=== PATIENT | female | born 1955 ===

== ENCOUNTER 2021-08-13 12:55 | Emergency (ER) | payer SELFPAY ==
--- NOTE | 2021-08-13 13:41 | EDM.PDOC ---
ED HPI GENERAL MEDICAL PROBLEM - General Chief Complaint: Respiratory Problem Stated Complaint: AMBULANCE Time Seen by Provider: 08/13/21 13:36 Source of Information: Reports: Patient History Limitations: Reports: Other (pt has a trac airwya and cannot speak effectively) - History of Present Illness INITIAL COMMENTS - FREE TEXT/NARRATIVE: 66 y/o F c/o R sided cp 4/10 , R lowed back pn and R shoulder pain all 4/10 for 1 week as well a cough with yellow sputum and tracheal congestion. Pt has a trach airway and conversing is difficult. She reports the cp is sharp painful to palpation, constant as is the shoulder and back pn. Hx of throat cancer 2 years ago which left her with the trach. SHe states the pain feels like the pain she had when she was diagnosed with cancer. She denies fever, chills, drugs, etoh, db, abd pn, pelvic pn, trauma, lower extremity pn, constipation, diff voiding. Lower Back Pain Score (Numeric/FACES): 6 ED ROS GENERAL - Review of Systems Review Of Systems: Comprehensive ROS is negative, except as noted in HPI. ED EXAM, GENERAL - Physical Exam Exam: See Below Exam Limited By: No Limitations General Appearance: Alert, No Apparent Distress Eye Exam: Bilateral Eye: PERRL Nose: Normal Inspection, Normal Mucosa, No Blood Throat/Mouth: Normal Inspection, Normal Lips, Normal Teeth, Normal Gums, Normal Oropharynx, Normal Voice, No Airway Compromise Head: Atraumatic, Normocephalic Neck: Supple, Non-Tender, Other (trach airway present and is producing extra secretions) Respiratory/Chest: No Respiratory Distress, Lungs Clear, Normal Breath Sounds, Other (chest tender to palaption R upper cehst R anteriro shoulder. ) Cardiovascular: Normal Peripheral Pulses, Regular Rate, Rhythm GI/Abdominal: Soft, Non-Tender (Female) Exam: Deferred Rectal (Female) Exam: Deferred Back Exam: Normal Inspection, Full Range of Motion, Other (tender to palpation R upper back) Extremities: Normal Inspection, Normal Range of Motion, Non-Tender, Normal Capillary Refill, No Pedal Edema Neurological: Alert, Oriented, CN II-XII Intact, Normal Cognition, Normal Gait, Normal Reflexes, No Motor/Sensory Deficits Skin Exam: Warm, Dry, Intact #1 Interpretation EKG Date: 08/13/21 Time: 13:41 Rhythm: Other (sinus tach) [place]: Normal P-Wave: Present QRS: Normal ST-T: Normal QT: Normal Course - Vital Signs Last Recorded V/S: Last Vital Signs Temp 97.8 F 08/13/21 13:09 Pulse 107 H 08/13/21 13:09 Resp 20 08/13/21 13:09 BP 153/98 H 08/13/21 13:09 Pulse Ox 97 08/13/21 13:09 - Orders/Labs/Meds Labs: Laboratory Tests 08/13/21 08/13/21 08/13/21 Range/Units 13:06 13:16 13:16 WBC 6.6 (5.0-10.0) 10^3/uL RBC 4.71 (4.2-5.4) 10^6/uL Hgb 13.5 (12.0-16.0) g/dL Hct 42.1 (37.0-47.0) % MCV 89.4 (80-100) fL MCH 28.7 (27.0-34.0) pg MCHC 32.1 L (33.0-35.0) g/dL Plt Count 194 (150-450) 10^3/uL Neut % (Auto) 72.4 (42.2-75.2) % Lymph % (Auto) 17.4 L (20.5-50.1) % [place] % (Auto) 7.3 (2-8) % Eos % (Auto) 2.6 (1.0-3.0) % Baso % (Auto) 0.3 (0.0-1.0) % D-Dimer, Quantitative (0-400) ng/mL Sodium 142 (136-145) mmol/L Potassium 3.8 (3.5-5.1) mmol/L Chloride 105 (98-107) mmol/L Carbon Dioxide 28 (21-32) mmol/L Anion Gap 12.8 (7-13) mEq/L BUN 16 (7-18) mg/dL Creatinine 0.88 (0.55-1.02) mg/dL Est Cr Clr Drug Dosing TNP Estimated GFR (MDRD) > 60 BUN/Creatinine Ratio 18.2 (No establ ref range) Glucose 90 (70-99) mg/dL Lactic Acid (0.4-2.0) mmol/L Calcium 8.9 (8.5-10.1) mg/dL Magnesium 1.8 (1.8-2.4) mg/dL Total Bilirubin 0.4 (0.2-1.0) mg/dL AST 22 (15-37) U/L ALT 16 (14-59) U/L Alkaline Phosphatase 90 (46-116) U/L Lactate Dehydrogenase (81-234) U/L Troponin I High Sens 13 (<=51) pg/mL C-Reactive Protein < 0.2 (0.0-0.9) mg/dL B-Natriuretic Peptide 20 (0-100) pg/ml Total Protein 7.3 (6.4-8.2) g/dL Albumin 3.4 (3.4-5.0) g/dL Globulin 3.9 Albumin/Globulin Ratio 0.9 Amylase 33 (25-115) U/L Lipase 92 (73-393) U/L Free T4 (0.76-1.46) ng/dL TSH, Ultra Sensitive (0.36-3.74) uIU/mL SARS-CoV-2 RNA (DEBBI) Negative (NEGATIVE) 08/13/21 08/13/21 08/13/21 Range/Units 13:16 13:16 13:16 WBC (5.0-10.0) 10^3/uL RBC (4.2-5.4) 10^6/uL Hgb (12.0-16.0) g/dL Hct (37.0-47.0) % MCV (80-100) fL MCH (27.0-34.0) pg MCHC (33.0-35.0) g/dL Plt Count (150-450) 10^3/uL Neut % (Auto) (42.2-75.2) % Lymph % (Auto) (20.5-50.1) % [place] % (Auto) (2-8) % Eos % (Auto) (1.0-3.0) % Baso % (Auto) (0.0-1.0) % D-Dimer, Quantitative 253 (0-400) ng/mL Sodium (136-145) mmol/L Potassium (3.5-5.1) mmol/L Chloride (98-107) mmol/L Carbon Dioxide (21-32) mmol/L Anion Gap (7-13) mEq/L BUN (7-18) mg/dL Creatinine (0.55-1.02) mg/dL Est Cr Clr Drug Dosing Estimated GFR (MDRD) BUN/Creatinine Ratio (No establ ref range) Glucose (70-99) mg/dL Lactic Acid 0.8 (0.4-2.0) mmol/L Calcium (8.5-10.1) mg/dL Magnesium (1.8-2.4) mg/dL Total Bilirubin (0.2-1.0) mg/dL AST (15-37) U/L ALT (14-59) U/L Alkaline Phosphatase (46-116) U/L Lactate Dehydrogenase 156 (81-234) U/L Troponin I High Sens (<=51) pg/mL C-Reactive Protein (0.0-0.9) mg/dL B-Natriuretic Peptide (0-100) pg/ml Total Protein (6.4-8.2) g/dL Albumin (3.4-5.0) g/dL Globulin Albumin/Globulin Ratio Amylase (25-115) U/L Lipase (73-393) U/L Free T4 (0.76-1.46) ng/dL TSH, Ultra Sensitive (0.36-3.74) uIU/mL SARS-CoV-2 RNA (DEBBI) (NEGATIVE) 08/13/21 08/13/21 Range/Units 13:16 13:16 WBC (5.0-10.0) 10^3/uL RBC (4.2-5.4) 10^6/uL Hgb (12.0-16.0) g/dL Hct (37.0-47.0) % MCV (80-100) fL MCH (27.0-34.0) pg MCHC (33.0-35.0) g/dL Plt Count (150-450) 10^3/uL Neut % (Auto) (42.2-75.2) % Lymph % (Auto) (20.5-50.1) % [place] % (Auto) (2-8) % Eos % (Auto) (1.0-3.0) % Baso % (Auto) (0.0-1.0) % D-Dimer, Quantitative (0-400) ng/mL Sodium (136-145) mmol/L Potassium (3.5-5.1) mmol/L Chloride (98-107) mmol/L Carbon Dioxide (21-32) mmol/L Anion Gap (7-13) mEq/L BUN (7-18) mg/dL Creatinine (0.55-1.02) mg/dL Est Cr Clr Drug Dosing Estimated GFR (MDRD) BUN/Creatinine Ratio (No establ ref range) Glucose (70-99) mg/dL Lactic Acid (0.4-2.0) mmol/L Calcium (8.5-10.1) mg/dL Magnesium (1.8-2.4) mg/dL Total Bilirubin (0.2-1.0) mg/dL AST (15-37) U/L ALT (14-59) U/L Alkaline Phosphatase (46-116) U/L Lactate Dehydrogenase (81-234) U/L Troponin I High Sens (<=51) pg/mL C-Reactive Protein (0.0-0.9) mg/dL B-Natriuretic Peptide (0-100) pg/ml Total Protein (6.4-8.2) g/dL Albumin (3.4-5.0) g/dL Globulin Albumin/Globulin Ratio Amylase (25-115) U/L Lipase (73-393) U/L Free T4 1.01 (0.76-1.46) ng/dL TSH, Ultra Sensitive 10.69 H (0.36-3.74) uIU/mL SARS-CoV-2 RNA (DEBBI) (NEGATIVE) - Re-Assessments/Exams Free Text/Narrative Re-Assessment/Exam: 08/13/21 14:58 I discussed the pts labs, exam, xray and ekg findings with her and explained that she likely has a respiratory infection which is why she is producing more mucus and sputum. The pt has been suctioned multiple times in the Er by RT and expresses some relief in her tracheal congestion. She is adamant about going home and states she has oxygen with humidification and suction at home to manage her extra secretions. 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 She will see her cancer doctor on and go over her results today. Departure - Departure Time of Disposition: 15:03 Disposition: Home, Self-Care 01 Condition: Good Clinical Impression: Viral respiratory illness - Discharge Information *PRESCRIPTION DRUG MONITORING PROGRAM REVIEWED*: Not Applicable *COPY OF PRESCRIPTION DRUG MONITORING REPORT IN PATIENT SATHISH: Not Applicable Instructions: Nonspecific Chest Pain, Adult, [id number] Forms: ED Department Discharge Additional Instructions: Continue suctioning your trach and use humidified oxygen to help keep your secretions from clogging up your trach. Follow up with your cancer doctor on and discuss your ER visit today. If any new symptoms or concerns develop contact your primary care facility or return to the ER. Sepsis Event Note (ED) - Evaluation Sepsis Screening Result: No Definite Risk - Focused Exam Vital Signs: Vital Signs Temp Pulse Resp BP Pulse Ox 08/13/21 13:09 97.8 F 107 H 20 153/98 H 97
[2021-08-13 13:50] LABS: ANION GAP 12.8 mEq/L (7-13); CHLORIDE,CL 105 mmol/L (98-107); SODIUM,NA 142 mmol/L (136-145)
--- NOTE | 2021-08-13 15:07 | CR ---
EXAMINATION: Chest 1V Frontal, rotated SEX: Female AGE: 66 years CLINICAL HISTORY: 66-year-old female with cough (right upper chest pain). No comparison films immediately available. Interpretation: 1. Ringlike Tracheostomy apparatus, left of midline. Gown snap. Brassiere clips over right shoulder. 2. Normal cardiac silhouette. No pulmonary vascular congestion, cephalization of flow, alveolar edema, pleural effusion. 3. No lung mass or hilar lymphadenopathy. 4. Normal midline tracheal bronchial airway. No pneumothorax or pneumomediastinum. No free subdiaphragmatic air. 5. No alveolar infiltrate, air bronchograms or peripheral "groundglass" interstitial lung densities. CONCLUSION: No signs of heart failure, lung malignancy or acute infiltrate.
== END 2021-08-13 15:45 | disposition home or self-care (01) ==
LOC: DL.ED 12:55
DX: J98.8 Other specified respiratory disorders (principal); R00.0 Tachycardia, unspecified; Z20.822 Contact with and (suspected) exposure to COVID-19
CPT/HCPCS: 36415; 71045; 80053; 82150; 83605; 83615; 83690; 83735; 83880; 84439; 84443; 84484; 85025; 85379; 86140; 93005; 99285-25; U0002